=== PATIENT | male | born 1975 | race Two or more races ===

== ENCOUNTER 2019-03-23 16:57 | Outpatient (CLI) | payer OTHER ==
--- NOTE | 2019-03-26 01:43 | XRAY Report ---
Reason: PAROXYSMAL ATRIAL FIBRILLATION Procedure Date: 03/23/2019 Accession Number: [id number] / [id number] Procedure: XR - Wrist 4 View RT CPT Code: FULL RESULT: EXAM: RIGHT WRIST RADIOGRAPHY EXAM DATE: 03/23/2019 06:00 PM. CLINICAL HISTORY: Wrist pain after injury. COMPARISON: None. TECHNIQUE: 4 views. FINDINGS: Bones: No fracture seen. Joints: No dislocation. Joint spaces are fairly well-preserved. Soft Tissues: Mild soft tissue swelling. IMPRESSION: 1. No fracture or dislocation seen. RADIA
--- NOTE | 2019-03-26 01:44 | XRAY Report ---
Reason: SPRAIN OF UNSPECIFIED RT WRIST RT HAND Procedure Date: 03/23/2019 Accession Number: [id number] / [id number] Procedure: XR - Hand 3 View RT CPT Code: FULL RESULT: EXAM: RIGHT HAND RADIOGRAPHY EXAM DATE: 03/23/2019 06:01 PM. CLINICAL HISTORY: Pain after injury. COMPARISON: None. TECHNIQUE: 3 views. FINDINGS: Bones: No fracture seen. Joints: No dislocation seen. Joint spaces are relatively well-preserved. Soft Tissues: Mild soft tissue swelling. IMPRESSION: 1. No fracture or dislocation seen. RADIA
--- NOTE | 2019-03-26 01:56 | XRAY Report ---
Reason: SPRAIN OF UNSPECIFIED RT WRIST RT HAND Procedure Date: 03/23/2019 Accession Number: [id number] / [id number] Procedure: XR - Cervical Spine 2 View CPT Code: FULL RESULT: EXAM: CERVICAL SPINE RADIOGRAPHY EXAM DATE: 03/23/2019 06:05 PM. CLINICAL HISTORY: Acute neck pain. COMPARISONS: None. TECHNIQUE: 3 views. FINDINGS: Alignment: Normal. No spondylolisthesis or scoliosis. Bones: The cervical vertebral bodies and posterior elements are visualized from the skull base through C7-T1. No fractures or bone lesions. Disks: Disk heights are relatively well-maintained. Facets: Degenerative joint disease at C7-T1. Soft Tissues: No prevertebral soft tissue swelling. Visualized lung apices appear clear. IMPRESSION: 1. No acute cervical spine abnormality. 2. Mild degenerative changes in the facet joints at C7-T1. RADIA
== END 2019-03-23 16:58 | disposition home or self-care (01) ==
LOC: DI 16:57
PROVIDERS: ATTEND Nurse Practitioner Family
DX: S63.91XA Sprain of unspecified part of right wrist and hand, initial encounter (principal); M47.813 Spondylosis without myelopathy or radiculopathy, cervicothoracic region
CPT/HCPCS: 72040

== ENCOUNTER 2020-02-28 15:29 | Outpatient (CLI) | payer BC, OTHER ==
--- NOTE | 2020-02-28 15:49 | XRAY Report ---
PROCEDURE: Chest 2 View X-Ray INDICATIONS: Cough TECHNIQUE: 2 view(s) of the chest. COMPARISON: None. FINDINGS: Surgical changes and devices: None. Lungs and pleura: No pleural effusions or pneumothorax. Lungs are clear. Mediastinum: Mediastinal contours are normal. Heart size is normal. Bones and chest wall: No suspicious bony abnormalities. Soft tissues appear unremarkable. IMPRESSION: No acute cardiopulmonary process demonstrated radiographically. Reviewed by: Gage Aguilar MD on 02/28/2020 3:47 PM PDT Approved by: Gage Aguilar MD on 02/28/2020 3:47 PM PDT Station ID: [id number]
== END 2020-02-28 15:30 | disposition home or self-care (01) ==
LOC: DI.S 15:29
PROVIDERS: ATTEND Nurse Practitioner Family
DX: R05 Cough (principal)
CPT/HCPCS: 71046

== ENCOUNTER 2020-06-04 12:18 | Outpatient (CLI) | payer OTHER | END 2020-06-04 12:19 | disposition home or self-care (01) | LOC: COV 12:18 | PROVIDERS: ATTEND Family Medicine | DX: U07.1 COVID-19 (principal) ==

== ENCOUNTER 2020-06-22 07:00 | Outpatient (CLI) | payer OTHER ==
--- NOTE | 2020-06-22 21:18 | XRAY Report ---
PROCEDURE: Chest 2 View X-Ray INDICATIONS: CORONAVIRUS INFECTION TECHNIQUE: 2 view(s) of the chest. COMPARISON: None. FINDINGS: Surgical changes and devices: None. Lungs and pleura: No pleural effusions or pneumothorax. Lungs are clear. Mediastinum: Mediastinal contours are normal. Heart size is normal. Bones and chest wall: No suspicious bony abnormalities. Soft tissues appear unremarkable. IMPRESSION: No acute cardiopulmonary disease. Reviewed by: Chilango Du MD on 06/22/2020 9:17 PM [facility] Approved by: Chilango Du MD on 06/22/2020 9:17 PM [facility] Station ID: [id number]
== END 2020-06-22 23:59 | disposition home or self-care (01) ==
LOC: DI.S 07:00
PROVIDERS: ATTEND Emergency Medicine
DX: Z20.828 Contact with and (suspected) exposure to other viral communicable diseases (principal)

== ENCOUNTER 2020-07-04 13:30 | Outpatient (CLI) | payer OTHER ==
[2020-07-04] MEDS ORDERED: ALBUTEROL 1 PUFF INH STA (14:00)
== END 2020-07-04 13:31 | disposition home or self-care (01) ==
LOC: RT 13:30
PROVIDERS: ATTEND Nurse Practitioner Family
DX: R05 Cough (principal)
CPT/HCPCS: 94060; 94727; 94729

== ENCOUNTER 2023-08-18 08:00 | Outpatient (CLI) | payer OTHER ==
[2023-08-18 15:41] LABS: BILIRUBIN,URINE NEGATIVE (NEGATIVE); GLUCOSE, URINE (UA) 100 mg/dL (NEGATIVE); KETONES,URINE (UA) NEGATIVE (NEGATIVE); LEUKOCYTE ESTERASE, URINE NEGATIVE (NEGATIVE); NITRITE,URINE NEGATIVE (NEGATIVE); OCCULT BLOOD,URINE NEGATIVE (NEGATIVE); PH,URINE 5.5 PH (5.0-7.5); PROTEIN,URINE TRACE mg/dL (NEGATIVE); UROBILINOGEN,URINE 0.2 (NORMAL) E.U./dL (NORMAL)
[2023-08-18 15:57] LABS: CLARITY,URINE CLEAR (CLEAR)
[2023-08-18 15:58] LABS: BACTERIA,URINE Rare /HPF (None Seen); RBC,URINE None Seen /HPF (0-5); SQUAMOUS EPITHELIAL CELL,UR RARE Squamous (<= Few); WBC,URINE 0-3 /HPF (0-3)
== END 2023-08-18 23:59 | disposition home or self-care (01) ==
LOC: LAB 08:00
PROVIDERS: ATTEND Emergency Medicine
DX: R10.32 Left lower quadrant pain (principal)
CPT/HCPCS: 81001; 87086

== ENCOUNTER 2024-01-09 13:01 | Outpatient (CLI) | payer OTHER ==
--- NOTE | 2024-01-09 14:01 | CT Report ---
PROCEDURE: Head WO INDICATIONS: STROKE TECHNIQUE: Noncontrast 4.5 mm thick angled axial sections acquired from the foramen magnum to the vertex. For r adiation dose reduction, the following was used: automated exposure control, adjustment of mA and/or kV according to patient size. COMPARISON: None. FINDINGS: Image quality: Excellent. CSF spaces: Basal cisterns are patent. No extra-axial fluid collections. Ventricles are normal in size and shape. Brain: Encephalomalacia and gliosis within the right cerebellar hemisphere with volume loss in the r ight posterior fossa. No midline shift. No intracranial masses or hemorrhage. Negron-white matter int erface is normal. Skull and face: Suboccipital craniotomy changes. Right parietal orlin hole craniotomy. Calvarium and v isualized facial bones are intact, without suspicious lesions. Sinuses: Visualized sinuses and mastoids are clear. IMPRESSION: 1.Suboccipital craniotomy changes with encephalomalacia and gliosis in the right cerebellar hemispher e. Recommend comparison with prior imaging if available. 2.Otherwise, no acute intracranial abnormalities. Reviewed by: Yony Alcaraz MD on 01/09/2024 2:00 PM PDT Approved by: Yony Alcaraz MD on 01/09/2024 2:00 PM PDT Station ID: [id number]
== END 2024-01-09 13:02 | disposition home or self-care (01) ==
LOC: DI 13:01
PROVIDERS: ATTEND Neurological Surgery
DX: G93.89 Other specified disorders of brain (principal)

== ENCOUNTER 2024-01-12 09:31 | Emergency (ER) | payer OTHER ==
--- NOTE | 2024-01-12 10:54 | ED Physician Documentation ---
PD HPI DYSPNEA - Stated complaint Stated Complaint: CHEST/SHOULDER PX,COUGHED UP BLOOD - Chief complaint Chief Complaint: Cardiac - History obtained from History obtained from: Patient - History of Present Illness Timing - onset: Today, Last night PD PAST MEDICAL HISTORY - Past Medical History Past Medical History: Yes Cardiovascular: Hypertension, [place] Neuro: CVA Endocrine/Autoimmune: Type 2 diabetes - Past Surgical History Past Surgical History: Yes Cardiovascular: Coronary stent Neuro: [employer] shunt - Present Medications Home Medications: Ambulatory Orders Medication Instructions Recorded Confirmed levoFLOXacin [Levaquin] 250 mg PO QD #7 tablet 01/12/24 - Allergies Allergies/Adverse Reactions: Allergies Allergy/AdvReac Type Severity Reaction Status Date / Time Penicillins Allergy Anaphylaxis Verified 01/12/24 09:50 - Social History Does the pt smoke?: No Smoking Status: Never smoker Does the pt drink ETOH?: No Does the pt have substance abuse?: No PD ED PE NORMAL - Vitals Vital signs reviewed: Yes - General General: Alert and oriented X 3, No acute distress, Well developed/nourished - HEENT HEENT: Pharynx benign - Neck Neck: Supple, no meningeal sign, No adenopathy - Cardiac Cardiac: RRR, No murmur - Respiratory Respiratory: Clear bilaterally - Abdomen Abdomen: Soft, Non tender - Derm Derm: Normal color, Warm and dry - Extremities Extremities: No edema, No calf tenderness / cord - Neuro Neuro: Alert and oriented X 3, No motor deficit, No sensory deficit, Normal speech Results - Vitals Vitals: Vital Signs - 24 hr 01/12/24 01/12/24 01/12/24 09:44 09:54 12:25 Temperature 36.2 C L 36.9 C Heart Rate 67 76 74 Respiratory 16 20 18 Rate Blood Pressure 114/63 125/69 O2 Saturation 97 99 98 01/12/24 13:37 Temperature Heart Rate 74 Respiratory 18 Rate Blood Pressure 109/62 O2 Saturation 96 Oxygen O2 Source Room air - EKG (time done) 09:53 EKG releavant findings:: EKG personally interpreted by author of this note. Relevant findings are: Rate: Rate (enter#) (68) Rhythm: NSR [place]: Normal Intervals: RBBB QRS: Normal Ischemia: Normal ST segments, Non specific changes - Labs Labs: Laboratory Tests 01/12/24 01/12/24 01/12/24 10:37 10:37 10:55 WBC 13.7 H RBC 4.92 Hgb 14.0 Hct 45.1 MCV 91.7 MCH 28.5 MCHC 31.0 L RDW 13.2 Plt Count 204 MPV 10.5 Neut # (Auto) 11.3 H Lymph # (Auto) 0.6 L [place] # (Auto) 1.7 H Eos # (Auto) 0.0 Baso # (Auto) 0.0 Absolute Nucleated RBC 0.00 Nucleated RBC % 0.0 Manual Slide Review Indicated WBC Morphology Platelet Estimate NORMAL (130-450,000) Platelet Morphology NORMAL APPEARANCE RBC Morph Micro Appear NORMAL APPEARANCE Sodium Potassium Chloride Carbon Dioxide Anion Gap BUN Creatinine Estimated GFR (MDRD) Glucose Calcium Magnesium 1.7 Total Bilirubin AST ALT Alkaline Phosphatase Troponin I High Sens B-Natriuretic Peptide 710 H Total Protein Albumin Globulin Albumin/Globulin Ratio Lipase Nasal Adenovirus (PCR) Nasal B. parapertussis DNA (PCR) Nasal Coronavir 229E PCR Nasal Coronavir HKU1 PCR Nasal Coronavir NL63 PCR Nasal Coronavir OC43 PCR Nasal Enterovir/Rhinovir PCR Nasal Influenza B PCR Nasal Influenza A PCR Nasal Parainfluen 1 PCR Nasal Parainfluen 2 PCR Nasal Parainfluen 3 PCR Nasal Parainfluen 4 PCR Nasal RSV (PCR) Nasal B.pertussis DNA PCR Nasal C.pneumoniae (PCR) Jose Human Metapneumo PCR Nasal M.pneumoniae (PCR) Nasal SARS-CoV-2 (PCR) 01/12/24 01/12/24 10:55 12:24 WBC RBC Hgb Hct MCV MCH MCHC RDW Plt Count MPV Neut # (Auto) Lymph # (Auto) [place] # (Auto) Eos # (Auto) Baso # (Auto) Absolute Nucleated RBC Nucleated RBC % Manual Slide Review WBC Morphology Platelet Estimate Platelet Morphology RBC Morph Micro Appear Sodium 131 L Potassium 4.8 H Chloride 98 L Carbon Dioxide 27 Anion Gap 6.0 BUN 18 Creatinine 1.0 Estimated GFR (MDRD) 80 L Glucose 266 H Calcium 10.1 Magnesium Total Bilirubin 0.7 AST 15 ALT 16 Alkaline Phosphatase 70 Troponin I High Sens 10.9 B-Natriuretic Peptide Total Protein 7.8 Albumin 3.9 Globulin 3.9 Albumin/Globulin Ratio 1.0 Lipase 43 Nasal Adenovirus (PCR) NOT DETECTED Nasal B. parapertussis DNA (PCR) NOT DETECTED Nasal Coronavir 229E PCR NOT DETECTED Nasal Coronavir HKU1 PCR NOT DETECTED Nasal Coronavir NL63 PCR NOT DETECTED Nasal Coronavir OC43 PCR NOT DETECTED Nasal Enterovir/Rhinovir PCR NOT DETECTED Nasal Influenza B PCR NOT DETECTED Nasal Influenza A PCR NOT DETECTED Nasal Parainfluen 1 PCR NOT DETECTED Nasal Parainfluen 2 PCR NOT DETECTED Nasal Parainfluen 3 PCR NOT DETECTED Nasal Parainfluen 4 PCR NOT DETECTED Nasal RSV (PCR) NOT DETECTED Nasal B.pertussis DNA PCR NOT DETECTED Nasal C.pneumoniae (PCR) NOT DETECTED Jose Human Metapneumo PCR NOT DETECTED Nasal M.pneumoniae (PCR) NOT DETECTED Nasal SARS-CoV-2 (PCR) NOT DETECTED - Rads (name of study) chest xray Relevant Findings:: Prelim report reviewed, EMP independent interpretation of test (left lower field infiltrate and small effusion. ) PD Medical Decision Making - ED course Complexity details: reviewed results, considered differential, d/w patient ED course: The patient's heart rate and oxygenation level is good. He has a incomplete right bundle branch block on EKG and I do not have comparisons. However we did do a BNP and a troponin that are both normal (the BNP is very slightly elevated). No signs of acute heart process. He is chest x-ray does show an infiltrate in the left lower. This would go along with where he is having some pleuritic type pain in the left flank. There is a small effusion. This could be a sequelae of prior PE that he had had in the hospital. However given the scenario of it it would make more sense to treat as a pneumonia with antibiotics. He does not have any wheezing and his sats are 98 to 100%. The degree and amount of hemoptysis he had is mild and at this point his blood count and vitals are stable. I did talk with the cardiology office at [facility] that he is following with. I talked with the nurse there who conveyed the information to his provider. They are in agreement with the treatment plan. Departure - Departure Disposition: 01 Home, Self Care Clinical Impression: Anticoagulant long-term use, Pneumonia, Hemoptysis, Pleuritic chest pain Condition: Stable Record reviewed to determine appropriate education?: Yes Instructions: ED Pneumonia Adult Follow-Up: ESTRELLA NOWAK MD [Primary Care Provider] - [facility] [Provider Group] Prescriptions: levoFLOXacin [Levaquin] 250 mg PO QD #7 tablet Comments: I did talk with the cardiology office at [facility] and spoke to the nurse there who will convey the information to the ER provider. We are going to treat for pneumonia with levofloxacin antibiotic. Continue with your current usual medications. Stay well-hydrated. Use Tylenol 500 to 650 mg 4 times daily to help with pains. You do have a pneumonia appearance on the lower left with some fluid around the lung in that corner. This is likely accounting for the pain you are having in the flank back. Likely also contributing to the cough that you are having. Some bloody sputum with coughing would not be too unusual. Return to the ER if a significant amount of bleeding with coughing or worse trouble breathing etc. The cardiology nurse said that they would be contacting you in the next couple of days to see how you are doing/update. You could call them tomorrow or the next as well if you have not heard from them. Forms: PCP List Discharge Date/Time: 01/12/24 13:38
[2024-01-12 11:04] LABS: BASOPHILS % (AUTO) 0.3 %; EOSINOPHILS % (AUTO) 0.1 %; HCT - HEMATOCRIT 45.1 % (42.0-52.0); LYMPHOCYTES # (AUTO) 0.6 10^3/uL (1.5-3.5); LYMPHOCYTES % (AUTO) 4.7 %; MEAN CORPUSCULAR HEMOGLOBIN 28.5 pg (27.0-31.0); MEAN CORPUSCULAR VOLUME 91.7 fL (80.0-94.0); MEAN PLATELET VOLUME 10.5 fL (7.4-11.4); MONOCYTES # (AUTO) 1.7 10^3/uL (0.0-1.0); MONOCYTES % (AUTO) 12.1 %; NEUTROPHILS # (AUTO) 11.3 10^3/uL (1.5-6.6); NEUTROPHILS % (AUTO) 82.4 %; PLT - PLATELET COUNT 204 10^3/uL (130-450); RED BLOOD COUNT 4.92 10^6/uL (4.70-6.10); RED CELL DISTRIBUTION WIDTH 13.2 % (12.0-15.0); WHITE BLOOD COUNT 13.7 x10^3/uL (4.8-10.8)
[2024-01-12 11:07] LABS: SLIDE REVIEW? Indicated
[2024-01-12 11:20] LABS: PLATELET ESTIMATE, MANUAL NORMAL (130-450,000) (NORMAL); PLATELET MORPHOLOGY NORMAL APPEARANCE (NORMAL); RBC MORPHOLOGY (MULTIPLE) NORMAL APPEARANCE (NORMAL)
[2024-01-12 11:28] LABS: TROPONIN I HIGH SENSITIVITY 10.9 ng/L (2.3-19.7)
--- NOTE | 2024-01-12 11:28 | XRAY Report ---
PROCEDURE: Chest 1V INDICATIONS: Chest pain TECHNIQUE: One view of the chest was acquired. COMPARISON: None. FINDINGS: Surgical changes and devices: None. Lungs and pleura: Small left pleural effusion. Increased opacification in the left lung base. Mediastinum: Mediastinal contours appear normal. Heart is enlarged. Bones and chest wall: No suspicious bony lesions. Overlying soft tissues appear unremarkable. IMPRESSION: Left basilar pneumonia with small parapneumonic effusion. Reviewed by: Hellen Cabrales MD, PhD on 01/12/2024 11:26 AM PDT Approved by: Hellen Cabrales MD, PhD on 01/12/2024 11:26 AM PDT Station ID: [id number]
[2024-01-12 11:31] LABS: ALBUMIN 3.9 g/dL (3.2-5.5); BILIRUBIN,TOTAL 0.7 mg/dL (0.2-1.0); CALCIUM 10.1 mg/dL (8.5-10.3); POTASSIUM 4.8 mmol/L (3.5-4.5); TOTAL PROTEIN 7.8 g/dL (6.4-8.9)
[2024-01-12] MEDS: levoFLOXacin 750 MG/150 ML 750 MG/150 ML BAG IV STA (11:59)
[2024-01-12] MEDS: KETOROLAC 15 MG/ML VIAL IVP STA (12:21)
[2024-01-12 13:23] LABS: CORONAVIRUS 229E-RESP PCR NOT DETECTED; CORONAVIRUS HKU1-RESP PCR NOT DETECTED; CORONAVIRUS NL63-RESP PCR NOT DETECTED; CORONAVIRUS OC43-RESP PCR NOT DETECTED; HUMAN METAPNEUMOVIRUS NOT DETECTED; INFLUENZA A- RESP PCR PANEL NOT DETECTED; INFLUENZA B - RESP PCR PANEL NOT DETECTED; PARAINFLUENZA VIRUS 1 NOT DETECTED; PARAINFLUENZA VIRUS 2 NOT DETECTED; PARAINFLUENZA VIRUS 3 NOT DETECTED; RHINOVIRUS/ENTEROVIRUS NOT DETECTED; SARS-CoV-2 -RESP PCR PANEL NOT DETECTED
[2024-01-12 13:24] LABS: B. PARAPERTUSSIS- RESP PCR PAN NOT DETECTED; B. PERTUSSIS- RESP PCR PANEL NOT DETECTED; C. PNEUMONIAE- RESP PCR PANEL NOT DETECTED; M. PNEUMONIAE- RESP PCR PANEL NOT DETECTED; PARAINFLUENZA VIRUS 4 NOT DETECTED; RSV- RESP PCR PANEL NOT DETECTED
[2024-01-12 13:39] VITALS: BP 109/62; O2SAT 96
== END 2024-01-12 13:38 | disposition home or self-care (01) ==
LOC: ED 09:31
DX: J18.9 Pneumonia, unspecified organism (principal); R04.2 Hemoptysis; I45.10 Unspecified right bundle-branch block; R94.31 Abnormal electrocardiogram [ECG] [EKG]; R07.81 Pleurodynia; Z79.01 Long term (current) use of anticoagulants; I10 Essential (primary) hypertension; I25.2 Old myocardial infarction; E11.9 Type 2 diabetes mellitus without complications; Z86.73 Personal history of transient ischemic attack (TIA), and cerebral infarction without residual deficits
CPT/HCPCS: 36415; 80053; 83690; 83735; 83880; 84484; 85025; 87633; 93005; 96365; 96366; 96375; 99284